=== PATIENT | male | born 1980 | race African-American/Black ===

== ENCOUNTER 2017-02-18 17:33 | Emergency (ER) | payer MEDICAID ==
[~2017-02-18] VITALS: Ht 160 cm; Wt 47.6 kg
[2017-02-18 17:56] VITALS: BP 141/85
== END 2017-02-19 01:33 | disposition left against medical advice (07) ==
LOC: ER 17:41
DX: R41.0 Disorientation, unspecified (principal); Z53.21 Procedure and treatment not carried out due to patient leaving prior to being seen by health care provider